=== PATIENT | male | born 1960 | race Caucasian/White ===

== ENCOUNTER 2021-01-09 17:22 | Emergency (ER) | payer OTHER ==
[2021-01-09 17:28] VITALS: BP 155/101; PULSE 74; RESP 18; TEMP 98.6
[2021-01-09] MEDS ORDERED: KETOROLAC 15 MG/ML 1 ML VIAL IM STA (17:48)
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
--- NOTE | 2021-01-09 18:34 | XR ---
EXAMINATION TYPE: XR clavicle RT DATE OF EXAM: 01/09/2021 COMPARISON: NONE HISTORY: Fall. Pain. TECHNIQUE: 2 views FINDINGS: There is comminuted fracture of the mid and lateral right clavicle. There is displacement o f the fragments up to 1.7 cm. The AC joint is intact. IMPRESSION: Comminuted displaced right clavicle fracture.
== END 2021-01-09 18:51 | disposition home or self-care (01) ==
LOC: EC 17:22
DX: S42.001A Fracture of unspecified part of right clavicle, initial encounter for closed fracture (principal); F17.200 Nicotine dependence, unspecified, uncomplicated; F41.9 Anxiety disorder, unspecified; I10 Essential (primary) hypertension; Z79.1 Long term (current) use of non-steroidal anti-inflammatories (NSAID); Z79.899 Other long term (current) drug therapy; Y93.55 Activity, bike riding; V18.0XXA Pedal cycle driver injured in noncollision transport accident in nontraffic accident, initial encounter
CPT/HCPCS: 73000; 99283; 96372; J1885